=== PATIENT | female | born 1975 | race Two or more races ===

== ENCOUNTER 2025-08-09 10:00 | Emergency (ER) | payer OTHER ==
[~2025-08-09] VITALS: Ht 165.1 cm; Wt 76.7 kg
[2025-08-09 10:00] VITALS: BP 125/72
[2025-08-09] MEDS ORDERED: METOCLOPRAMIDE HCL 10 MG/2 ML VIAL ONE (10:26)
[2025-08-09] MEDS ORDERED: PANTOPRAZOLE SODIUM 40 MG VIAL ONE (10:26)
[2025-08-09] MEDS: PANTOPRAZOLE SODIUM 40 MG VIAL IV ONE (10:27)
[2025-08-09] MEDS: METOCLOPRAMIDE HCL 10 MG/2 ML VIAL IV ONE (10:30)
[2025-08-09 10:31] LABS: PLATELET COUNT (AUTO) 252 K/uL (179-408); RED BLOOD CELL COUNT(AUTO) 4.18 MIL/uL (3.63-4.92); RED CELL DISTRIBUTION WIDTH 14.2 % (12.3-17.7); WHITE BLOOD COUNT (AUTO) 5.8 K/uL (3.8-11.8)
[2025-08-09 10:38] LABS: CREATININE 0.9 mg/dL (0.6-1.3); SODIUM SERUM 141.0 mmol/L (136-145); UREA NITROGEN, BLOOD 11.0 mg/dL (7-18)
[2025-08-09 10:44] LABS: ASPARTATE AMINOTRANSFERASE 181.0 U/L (15-37); TOTAL PROTEIN, SERUM 7.7 g/dL (6.4-8.2)
[2025-08-09] MEDS ORDERED: SEMA1PEN SQ (11:24)
[2025-08-09] MEDS: IV NS 1000 ML 1,000 ML IV ONE (12:07)
[2025-08-09] MEDS ORDERED: IOHEXOL 300MG/ML 100 ML INFUS..BTL ONE (12:25)
[2025-08-09] MEDS ORDERED: IV NORMAL SALINE 250 ML IV ONE (12:25)
[2025-08-09] MEDS ORDERED: SWABABLE VALVE TRANSFER SET EA MC ONE (12:25)
[2025-08-09 13:50] LABS: *BILIRUBIN,URIN NEGATIVE (NEGATIVE); *CLARITY,URINE CLEAR (CLEAR); *COLOR,URINE YELLOW (YELLOW); *KETONES,URINE 1+ (NEGATIVE); *PROTEIN,URINE NEGATIVE (NEGATIVE); *UROBILINOGEN,URINE 1.0 E.U./dl (NORMAL); LEUKOCYTE ESTERASE ,URINE NEGATIVE (NEGATIVE); NITRITE, URINE NEGATIVE (NEGATIVE); UGLUCOSE NEGATIVE (NEGATIVE)
[2025-08-09 13:51] LABS: *BLOOD, URINE TRACE (NEGATIVE)
[2025-08-09 13:57] LABS: SQUAMOUS EPITHELIAL CELL,UR FEW /HPF (NONE SEEN); URINE AMORPHOUS PHOSPHATES FEW /HPF
[2025-08-09 14:21] LABS: ASPARTATE AMINOTRANSFERASE 131.0 U/L (15-37); TOTAL PROTEIN, SERUM 7.2 g/dL (6.4-8.2)
[2025-08-09] MEDS ORDERED: POTASSIUM CHLORIDE 20 MEQ TAB.PRT.SR ONE (14:37)
[2025-08-09] MEDS: POTASSIUM CHLORIDE 20 MEQ TAB.PRT.SR PO ONE (14:40)
[2025-08-09] MEDS ORDERED: HYDR-3972 PO (14:42)
[2025-08-09] MEDS ORDERED: RABE20TA32 PO (14:42)
[2025-08-09 14:53] VITALS: BP 129/70; O2SAT 96
== END 2025-08-09 14:53 | disposition home or self-care (01) ==
LOC: ER 10:00
DX: K80.70 Calculus of gallbladder and bile duct without cholecystitis without obstruction (principal); E66.9 Obesity, unspecified; R10.13 Epigastric pain; R74.8 Abnormal levels of other serum enzymes
CPT/HCPCS: 99285; 74177; 96374; 76705; 96361; 96375; 80048; 81001; 83690 ×2; 85025; 36415; 93005; 80076 ×2; J2765; Q9967; J2470; J7040; A4606; A4663